=== PATIENT | male | born 1935 | race Two or more races ===

== ENCOUNTER → 2017-09-30 09:20 | Outpatient (CLI) | payer OTHER | END | disposition home or self-care (01) | LOC: RAD 09:20 | DX: M79.644 Pain in right finger(s) (principal) ==

== ENCOUNTER → 2018-12-02 | Outpatient (CLI) | payer OTHER ==
[~2018-12-02] MED LIST: FORTAMET1000 MG
== END | disposition home or self-care (01) ==
LOC: NUCLEAR 10:54
DX: M81.0 Age-related osteoporosis without current pathological fracture (principal)

== ENCOUNTER 2018-12-05 09:30 | Emergency (ER) | payer OTHER ==
[~2018-12-05] VITALS: Ht 172.7 cm; Wt 98.0 kg
[2018-12-05] MEDS ORDERED: FORTAMET1000 MG (10:07)
== END 2018-12-05 14:47 | disposition home or self-care (01) ==
LOC: ER 09:30
DX: D64.9 Anemia, unspecified (principal)